=== PATIENT | female | born 1990 | race African-American/Black ===

== ENCOUNTER 2020-11-18 16:03 | Emergency (ER) | payer OTHER, SELFPAY ==
[2020-11-18 16:27] VITALS: BP 131/78; PULSE 98; RESP 16; TEMP 36.5; O2SAT 100
--- NOTE | 2020-11-18 16:52 | PC.NURSE ---
pt wants to be seen for std check. voices concern for exposure
[2020-11-18 18:29] LABS: Add Urine Microscopic? NO; Appearance Urine Clear (Clear); Bilirubin Urine Negative (Negative); Blood Urine Negative (Negative); Color Urine Straw (Yellow); Glucose Urine UA Negative (Negative); Ketones Urine Negative (Negative); Leukocyte Esterase Ur Negative LEU/UL (Negative); Nitrate Urine Negative (Negative); Protein Urine Negative (Negative); Specific Grav Ur 1.014 (1.001-1.035); Urobilinogen Urine Negative mg/dL (<2.0)
--- NOTE | 2020-11-18 18:42 | ED.FEMALEGU ---
HPI - Female Genitourinary General Chief complaint: Urogenital-Female Stated complaint: dysuria Time Seen by Provider: 11/18/20 18:02 Source: patient Mode of arrival: ambulatory Limitations: no limitations History of Present Illness HPI Narrative: This is a 30 year old female that presents to the ER for dysuria x 2 weeks. Also reports increased vaginal discharge. Would like to be tested for STDs. Denies fever, abdominal pain, vomiting, flank pain, or hematuria. Related Data Home Medications Medication Instructions Recorded Confirmed No Home Medications 11/18/20 11/18/20 Allergies Allergy/AdvReac Type Severity Reaction Status Date / Time No Known Allergies Allergy Unverified 11/01/18 13:07 Review of Systems Review of Systems: Narrative: CONSTITUTIONAL: Denies fever GASTROINTESTINAL: Denies abdominal pain, nausea, vomiting GENITOURINARY: Reports dysuria. Denies hematuria. SKIN: Denies rash All systems reviewed & are unremarkable except as noted in HPI and below PMFSH Surgical History Surgical History (Updated 11/18/20 @ 20:17 by Pebbles Gardner PA-C) History of section Social History Social History (Updated 11/18/20 @ 20:17 by Pebbles Gardner PA-C) Smoking status: Never smoker Exam Narrative: Exam Narrative: GENERAL: Well-appearing, well-nourished, and in no acute distress. HEAD: Normocephalic, atraumatic. EYES: EOMI. CHEST: Clear to auscultation. No respiratory distress. No wheezes rales or rhonchi HEART: Regular rate and rhythm. No murmur heard. Normal peripheral pulses. ABDOMEN: Soft, nontender, nondistended, normal active bowel sounds. No CVA tenderness EXTREMITIES: Normal range of motion. No edema. SKIN: Warm, dry, no rash. NEURO: No focal deficits. Alert and oriented x3. PSYCH: Normal mood and affect PELVIC: Normal external genitalia. Normal appearing cervix, no CMT. No abnormal discharge noted Course Vital Signs Vital signs: Vital Signs Temperature 97.7 F 11/18/20 16:27 Pulse Rate 98 11/18/20 16:27 Respiratory Rate 16 11/18/20 16:27 Blood Pressure 131/78 11/18/20 16:27 Pulse Oximetry 100 11/18/20 16:27 Temperature 97.7 F 11/18/20 16:27 Pulse Rate 98 11/18/20 16:27 Respiratory Rate 16 11/18/20 16:27 Blood Pressure 131/78 11/18/20 16:27 Pulse Oximetry 100 11/18/20 16:27 MDM - Female Genitourinary MDM Narrative Medical decision making narrative: Patient presents to the ER for dysuria x 2 weeks. Requesting testing for STDs. She is afebrile and nontoxic appearing. UA is without evidence of infection. Bedside test is negative. No abnormalities noted on pelvic exam. Trichomonas is negative. Chlamydia and gonorrhea were sent. HIV was negative. RPR and hepatitis panel pending. Patient to follow-up with her primary for further results of testing Lab Data Attestation: I reviewed the patient's lab results. Labs: Lab Results 11/18/20 11/18/20 11/18/20 Range/Units 18:17 19:05 19:05 Urine Color Straw (Yellow) Urine Appearance Clear (Clear) Urine pH 6.0 (5.0-9.0) Ur Specific [place] 1.014 (1.001-1.035) Urine Protein Negative (Negative) mg/dL Urine Glucose (UA) Negative (Negative) mg/dL Urine Ketones Negative (Negative) mg/dL Ur Blood (Man) Negative (Negative) Urine Nitrate Negative (Negative) Urine Bilirubin Negative (Negative) Urine Urobilinogen Negative (<2.0) mg/dL Leukocyte Esterase Rfl Negative (Negative) CANDY/UL RPR Pending C.trachomatis RNA (TMA) Hepatitis A IgM Ab Pending Hep Bs Antigen Pending Hep B Core IgM Ab Pending Hepatitis C Ab Screen Pending HIV 1&2 Ab/P24 Ag 4thGn (Negative) N.gonorrhoeae RNA (TMA) Trichomonas Direct ID (Negative) 11/18/20 11/18/20 11/18/20 Range/Units 19:05 19:06 19:06 Urine Color (Yellow) Urine Appearance (Clear) Urine pH (5.0-9.0) Ur Specific [place]
[2020-11-18 20:07] LABS: HIV 1/2 Ab P24 Ag Result Negative (Negative)
[2020-11-18 20:24] LABS: Hepatitis B Surface Antigen Negative (Negative)
[2020-11-18 20:29] LABS: HAV RESULT Negative (Negative); Hepatitis B Core IgM Result Negative (Negative)
[2020-11-18 20:41] LABS: Hepatitis C Virus Antibody Negative (Negative)
[2020-11-19 09:10] LABS: Rapid Plasma Reagin Non-Reactive (NonReactive)
== END 2020-11-18 20:47 | disposition home or self-care (01) ==
PROVIDERS: Physician Assistant; Emergency Provider Family Medicine
DX: R30.0 Dysuria (principal)
CPT/HCPCS: 36415; 80074; 81003; 81025; 86592; 86703; 87070; 87491; 87591; 87808; 99284; G0432